=== PATIENT | female | born 1960 | race Caucasian/White ===

== ENCOUNTER → 2018-02-20 08:25 | Outpatient (CLI) | payer BC, SELFPAY ==
--- NOTE | 2018-02-20 08:32 | BD_ITS ---
STUDY: DUAL ENERGY X-RAY ABSORPTIOMETRY / DXA REASON FOR EXAM: Female, 57 years old. Postmenopausal screening TECHNIQUE: Bone Mineral Density (BMD) measurements of lumbar spine and bilateral hips was obtained. COMPARISON: None. FINDINGS: Lumbar Spine (L1-L4): g/cm2 (1.105) / T-score (-0.6) / Z-score (0.3) Findings are suggestive of normal bone density with a low fracture risk. Left Femur Total: g/cm2 (0.940) / T-score (-0.5) / Z-score (0.2) Left Femoral Neck: g/cm2 (0.926) / T-score (-0.8) / Z-score (0.3) Right Femur Total: g/cm2 (0.884) / T-score (-1.0) / Z-score (-0.2) Right Femoral Neck: g/cm2 (0.901) / T-score (-1.0) / Z-score (-0.2) BD/Dexa Bone Density Study IMPRESSION: The patient is considered osteopenic as outlined below according to World Jamari Organization (WHO) criteria with a moderate fracture risk. Reference Information: The T-score is the number of standard deviations above or below the standard which is normal for young adults at their peak bone mineral density. The World Health Organization (WHO) interprets the T-scores as follows: Above -1 Normal bone density Between -1 and -2.5 Osteopenia Equal to / or below -2.5 Osteoporosis As a practical clinical guideline, osteopenia may be graded as follows: Mild -1 through -1.5 Moderate -1.6 through -2.0 Severe -2.1 through -2.4 The Z-score is the number of standard deviations above or below age-matched controls. A Z-score of less than -1.5 would be considered abnormal. References: 1. NIH Osteoporosis and Related Bone Diseases http://www.osteo.org 2. International Society for Clinical Densitometry http://www.iscd.org 3. National Osteoporosis Foundation http://www.nof.org Electronically Signed: Erick Ralph MD at 8:06 EDT , Service support ,
== END ==
PROVIDERS: Family Provider Internal Medicine; PCP Internal Medicine; Visit Provider Internal Medicine
DX: Z78.0 Asymptomatic menopausal state (principal); M85.80 Other specified disorders of bone density and structure, unspecified site
CPT/HCPCS: 77080

== ENCOUNTER → 2018-05-15 15:30 | Outpatient (CLI) | payer BC, SELFPAY ==
--- NOTE | 2018-05-15 15:32 | BI_ITS ---
MAMMOGRAPHY - BILATERAL SCREENING REASON FOR EXAM: Female, 57 years old. Routine annual screening examination. PERTINENT HISTORY: Grandmother with breast cancer. TECHNIQUE: Digital bilateral breast fredrick (3D mammographic acquisition) in the CC and MLO projections. 2-D mediolateral oblique (MLO) and craniocaudad (CC) views of both breasts were obtained. CAD: Full Field Digital Mammography with Computer Added Detection was performed. COMPARISON: Comparison is made with prior examination dated April 03, 2017. FINDINGS: Breast Composition: The breasts are heterogeneously dense, which may obscure small masses. There are no dominant masses or suspicious calcifications. No other significant abnormalities are identified. There has been no significant change since the prior study. BI/SCREENING MAMM (CAD), BILAT IMPRESSION: Stable bilateral screening mammogram. Yearly follow-up mammogram recommended. (A) ASSESSMENT CATEGORY: BIRADS Category 1: Negative. A letter regarding these results will be sent to the patient by the facility within 30 days. Approximately 10% of breast cancers are not detected by mammography. A normal mammogram should not delay biopsy of a clinically suspicious abnormality. [id number] Electronically Signed: Brandon Vazquez MD at 9:25 EDT Tel [phone], Service support ,
== END ==
PROVIDERS: Family Provider Internal Medicine; PCP Internal Medicine; Visit Provider Obstetrics & Gynecology
DX: Z12.31 Encounter for screening mammogram for malignant neoplasm of breast (principal)
CPT/HCPCS: 77063; 77067

== ENCOUNTER → 2018-07-03 13:30 | Outpatient (CLI) | payer BC, SELFPAY ==
[2018-07-11 11:49] LABS: HPV APTIMA, High Risk Negative (Negative)
== END ==
PROVIDERS: Family Provider Internal Medicine; PCP Internal Medicine; Visit Provider Obstetrics & Gynecology
DX: Z12.4 Encounter for screening for malignant neoplasm of cervix (principal)
CPT/HCPCS: 88175; G0145

== ENCOUNTER → 2019-05-06 12:57 | Outpatient (CLI) | payer BC, SELFPAY ==
[2018-07-03 13:29] VITALS: BMI 23.3
--- NOTE | 2019-05-06 13:05 | BI_ITS ---
MAMMOGRAPHY - BILATERAL SCREENING REASON FOR EXAM: Female, 58 years old. Routine annual screening examination. PERTINENT HISTORY: Grandmother with breast cancer. TECHNIQUE: Digital bilateral breast rola (3D mammographic acquisition) in the CC and MLO projections. 2-D mediolateral oblique (MLO) and craniocaudad (CC) views of both breasts were obtained. CAD: Full Field Digital Mammography with Computer Added Detection was performed. COMPARISON: Comparison is made with prior study dated May 15, 2018. FINDINGS: Breast Composition: The breasts are heterogeneously dense, which may obscure small masses. There are no dominant masses or suspicious calcifications. No other significant abnormalities are identified. There has been no significant change since the prior study. BI/SCREEN MAMM (CAD) W/ROLA BILAT IMPRESSION: Stable bilateral screening mammogram. Yearly follow-up mammogram recommended. (A) ASSESSMENT CATEGORY: BIRADS Category 1: Negative. A letter regarding these results will be sent to the patient by the facility within 30 days. Approximately 10% of breast cancers are not detected by mammography. A normal mammogram should not delay biopsy of a clinically suspicious abnormality. [id number] Electronically Signed: Brandon Vazquez, at 15:41 EDT , Service support ,
== END ==
PROVIDERS: Family Provider Internal Medicine; PCP Internal Medicine; Referring Provider Internal Medicine; Visit Provider Internal Medicine
DX: Z12.31 Encounter for screening mammogram for malignant neoplasm of breast (principal)
CPT/HCPCS: 77063; 77067

== ENCOUNTER → 2019-09-24 08:26 | Outpatient (CLI) | payer BC, SELFPAY ==
[2019-09-16 11:29] VITALS: BMI 23.3
--- NOTE | 2019-09-24 08:31 | US_ITS ---
STUDY: ULTRASOUND TRANSVAGINAL CLINICAL: Female, 58 years old. TECHNIQUE: Transvaginal) and transabdominal COMPARISON: None. FINDINGS: Normal uterine size measuring 6.8 x 4.4 x 2.6 cm cm in maximal craniocaudal dimension. There are no myometrial masses. Normal endometrial thickness measuring 4 mm. There are no endometrial masses, and there is no fluid in the endometrial cavity. Normal uterine cervix. Normal right ovary, measuring 1.6 1.9 x 2.6 x 1.3 cm. There are multiple follicles without a dominant cyst. Normal left ovary, measuring 2.1 x 2.1 x 1 cm. There are multiple follicles without a dominant cyst. There is no free fluid in the pelvis. No cystic changes noted in either ovary. No free fluid in the pouch of Roland. US/Transvaginal Non- IMPRESSION: Negative study Electronically Signed: Dahlia Elkinsbrandie, at 8:37 EST Tel , Service support ,
--- NOTE | 2019-09-24 08:31 | US_ITS ---
STUDY: ULTRASOUND TRANSVAGINAL CLINICAL: Female, 58 years old. TECHNIQUE: Transvaginal) and transabdominal COMPARISON: None. FINDINGS: Normal uterine size measuring 6.8 x 4.4 x 2.6 cm cm in maximal craniocaudal dimension. There are no myometrial masses. Normal endometrial thickness measuring 4 mm. There are no endometrial masses, and there is no fluid in the endometrial cavity. Normal uterine cervix. Normal right ovary, measuring 1.6 1.9 x 2.6 x 1.3 cm. There are multiple follicles without a dominant cyst. Normal left ovary, measuring 2.1 x 2.1 x 1 cm. There are multiple follicles without a dominant cyst. There is no free fluid in the pelvis. No cystic changes noted in either ovary. No free fluid in the pouch of Roland. US/Pelvic (Non ) IMPRESSION: Negative study Electronically Signed: Dahlia Abel, at 8:37 EST Tel , Service support ,
== END ==
PROVIDERS: Family Provider Internal Medicine; PCP Internal Medicine; Referring Provider Obstetrics & Gynecology; Visit Provider Obstetrics & Gynecology
DX: N94.9 Unspecified condition associated with female genital organs and menstrual cycle (principal)
CPT/HCPCS: 76830; 76856; 93976

== ENCOUNTER 2019-10-13 10:03 | Emergency (ER) | payer BC, SELFPAY ==
[2019-09-16 11:29] VITALS: BMI 23.3
[2019-10-13 10:04] VITALS: BP 122/60; PULSE 78; RESP 18; TEMP 36.7; O2SAT 99; BMI 23.2
[2019-10-13 10:16] VITALS: BP 122/60; PULSE 78; RESP 18; TEMP 36.7; O2SAT 99
--- NOTE | 2019-10-13 10:17 | EKG12_ITS ---
Test Reason : COMPLAINT Blood Pressure : / mmHG Vent. Rate : 069 BPM Atrial Rate : 069 BPM P-R Int : 162 ms QRS Dur : 080 ms QT Int : 376 ms P-R-T Axes : 055 064 062 degrees QTc Int : 402 ms Normal sinus rhythm Normal ECG Confirmed by MING CHAVIRA, BENI ([id number]), video news editor EDUARDO GARCIA ([id number]) on 10/14/2019 11:30:29 AM Referred By: AMADA Confirmed By:BENI LAI MD
[2019-10-13 10:52] LABS: Absolute Lymphocyte Count 0.72 X10^3/uL (0.83-4.51); Absolute Neutrophil Count 10.1 X10^3/uL (2.0-7.7); Basophil# 0.03 X10^3/uL; Basophil% 0.3 % (0-1); Eosinophil# 0.06 X10^3/uL; Eosinophils% 0.5 % (0-5); Hematocrit 41.8 % (37-47); Hemoglobin 13.7 g/dL (12.0-15.0); Lymphocyte # 0.72 X10^3/ul (4.0); Lymphocyte % 6.2 % (19-41); Mean Corp Hgb Conc 32.8 g/dL (32-36); Mean Corpuscular Volume 94.6 fL (81-99); Mean Platelet Vol. 9.4 fl (6.2-12.0); Monocyte# 0.67 X10^3/uL; Monocyte% 5.8 % (0-10); NRBC Flagged by Analyzer 0 % (0-5); Neutrophil # 10.05 X10^3/uL (2.7-7.7); Neutrophil % 86.9 % (47-70); Platelet Count 211 K/mm3 (150-450); RBC Distribution Width CV 11.6 % (11.6-14.6); RBC Distribution Width SD 40.2 fl (35.1-43.9); Red Blood Count 4.42 M/mm3 (4.2-5.4); White Blood Count 11.6 K/mm3 (4.4-11.0)
--- NOTE | 2019-10-13 10:54 | ED.VIS.GEN ---
History of Present Illness Chief Complaint: Complaint Informant: Patient Onset: Today Maximum Severity: Mild Narrative: Patient complains of urinary frequency dysuria for about 24 to 48 hours, she was seen in urgent care center diagnosed with UTI, while she was there she felt suddenly tired and weak slightly dizzy and she was sent to the emergency department she is the symptoms are totally resolved she is had no fever no cough no chest pain no numbness weakness paresthesias, her last UTI was possibly 9 months ago she was treated with Cipro, she is been doing well at home and she assures me she feels fine now back to baseline she has no history of AK PE DVT seizure stroke Past Medical History - Allergies and Home Meds Allergies/Adverse Reactions: Allergies No Known Allergies Allergy (Verified 10/13/19 10:04) Primary Care Physician: Maria C Rodríguez DO [Primary Care Provider] - Past Medical History: - Smoking Status: Never smoker Review of Systems ROS: - Includes as above General: Reports: - - Only issue is the dysuria and frequency the transient dizziness is resolved completely. Denies: Chills, Fever, Sweats Eyes: Denies: Visual changes - bilaterally, Diplopia ENT: Denies: Rhinorrhea, Sore throat Cardiovascular: Denies: Chest pain, Palpitations Respiratory: Denies: Dyspnea, Cough, Dyspnea on exertion Gastrointestinal: Denies: Abdominal pain, Nausea, Vomiting, Diarrhea, Melena, Hematochezia Genitourinary: Denies: Dysuria, Hematuria, Frequency Musculoskeletal: Denies: Back pain, Extremity Pain Skin: Denies: Rash, Wounds Neurological: Denies: Headache, Weakness, Numbness Physical Exam Vital Signs/Narrative: Vital Signs Temp Pulse Resp BP Pulse Ox 10/13/19 10:16 98.1 F 78 18 122/60 H 99 10/13/19 10:04 98.1 F 78 18 122/60 H 99 General: Well nourished, Well developed, No Acute Distress Head: Normocephalic, Atraumatic Eyes: Perrl, EOMI ENT: Moist mucous membranes, No rhinorrhea Neck: Supple, Nontender Cardiovascular: Regular rate, Regular rhythm, No murmurs Respiratory: No distress, CTA bilaterally, Chest nontender Abdomen: Soft, Nontender, Nondistended, Normal bowel sounds Back: Nontender, Normal Inspection Extremities: Nontender, No edema Skin: Normal color, No rash Neurological: Alert, Oriented x3, Cranial nerves II-XII grossly intact, Normal Strength, Normal Sensation Psychological: Normal affect, Normal Mood Diagnostic/Tx/Re-eval - Medical Decision Making Patient's in no distress her vital signs are normal her neurologic exam is entirely negative cranial nerves motor or sensory cerebellar negative NIH 0 she had no cardiovascular symptoms just the dysuria this time screening labs are obtained EKG shows a sinus rhythm rate 70 no acute injury pattern noted The patient's screening labs are generally unremarkable except her UA shows signs of UTI, urine culture sent her white count 11.6 she is in no distress she feels at baseline she is comfortable discharge home does not feel as if admission is warranted, she will be started on oral Cipro which is helped in the past and she will follow-up with her outpatient providers Home stable Final impression urinary tract infection ED Disposition - Plan for ED Patient: Diagnosis: UTI (urinary tract infection) Instructions: Bladder Infection, Female (Adult) Prescriptions: Ciprofloxacin [Cipro] 500 mg PO BID #10 tab Prescription Printed Phenazopyridine HCl [Pyridium] 200 mg PO BID PRN PRN #10 tab PRN Reason: Pain Prescription Printed Referrals: Maria C Rodríguez DO [Primary Care Provider] -
[2019-10-13 11:04] LABS: Anion Gap 4 (5-15); BUN 10 mg/dL (7-18); BUN/Creat Ratio 12.7 RATIO (10-20); Calcium,Total 8.6 mg/dL (8.5-10.1); Chloride 102 mmol/L (98-107); Creatinine, Serum 0.79 mg/dL (0.55-1.02); EST Glomerular Filtration Rate 79 mL/min (>60); Est Glom Filt Rate - Afr Amer 96 mL/min (>60); Estimated Creatinine Clearance 64.21 ml/min; Glucose 121 mg/dL (74-106); Potassium 3.5 mmol/L (3.5-5.1); Sodium Level 136 mmol/L (136-145)
[2019-10-13 11:07] VITALS: BP 103/57; PULSE 74; RESP 16; TEMP 36.9; O2SAT 100
[2019-10-13] MEDS: 0.9% Normal Saline 1,000 ML 125 ML IV (11:35)
[2019-10-13 11:44] LABS: Bacteria 0 SEEN /hpf (None Seen); Mucous, Urine 0 SEEN /hpf (<or=2+); Squamous Epithelial Cells - UA 0 SEEN /hpf (5-10)
[2019-10-13 11:45] LABS: Color, Urine Yellow (Yellow); Glucose, Dipstick Normal (Normal); Ketone-Dipstick 5 mg/dl (Negative); Leukocyte Esterase-Dipstick 500 /ul (Negative); Nitrite-Dipstick Positive (Negative); Occult Blood-Urine 250 /ul (Negative); Protein-Dipstick 100 mg/dl (Negative); Specific Gravity, Urine 1.015 (1.002-1.030); Urine Bilirubin Dipstick Negative (Negative); Urine Clarity Cloudy (Clear); Urine Urobilinogen 1 mg/dl (Normal)
[2019-10-13 11:52] LABS: Red Blood Cells-Urine > 100 SEEN /hpf (0-5)
[2019-10-13 11:53] LABS: White Blood Cells 50-100 SEEN /hpf (0-5)
[2019-10-13 12:00] VITALS: TEMP 37
[2019-10-13 12:03] VITALS: BP 103/48; PULSE 80; RESP 18; O2SAT 99
[2019-10-13] MEDS: Ciprofloxacin 250 MG Tablet 500 MG PO (12:35)
== END 2019-10-13 13:02 | disposition home or self-care (01) ==
PROVIDERS: Emergency Provider Emergency Medicine; Family Provider Internal Medicine; PCP Internal Medicine
DX: N39.0 Urinary tract infection, site not specified (principal)
CPT/HCPCS: 80048; 81001; 84484; 85025; 87086; 87088; 93005; 96360; 99284; J7030; J7040; A4216

== ENCOUNTER → 2019-12-18 | Outpatient (CLI) | payer BC, SELFPAY ==
[2019-12-18 10:59] VITALS: BMI 23.2
--- NOTE | 2019-12-18 11:15 | EMB_PTH ---
PATIENT: MACARENA WEEKS LOC: [facility] U#:[id number] AGE/SX: 59/F ROOM: RE12/18/[address]: JULI Cabrera : 1960 BED: DIS: 12/18/2019 SPEC #: [id number] RECD: 12/18/19 13:48 STATUS: GRETCHEN RELulu #: [id number] DANIEL: 12/18/19 11:[address]: Tierra Dixon NP DEPT: SURGICAL PATHOLOGY RECD BY: Elma Pink ENTERED: 12/18/19 14:07 SP TYPE: ENDOM BX/C CHARITY DR: Dr. Maria C Rodríguez DO Tissues: Endometrium, NOS Procedures: Surgery Specimen Level IV HEADER OPERATION: Endometrial biopsy PRE-OP DIAGNOSIS: Abnormal uterine bleeding TISSUE SUBMITTED: Endometrial lining MICROSCOPIC DIAGNOSIS Endometrial biopsy: Strips of benign endometrial epithelium and scant superficial fragments of inactive endometrial tissue. See comment. SJ:ena 12/19/19 COMMENT The findings may represent atrophic endometrium. MICROSCOPIC DESCRIPTION Slides are reviewed. GROSS DESCRIPTION Received is one container labeled with the patient's name and not further designated. The specimen consists of a scant fragments of mackey mucosal tissue measuring 1.5 x 0.1 x <0.1 cm. The specimen is totally submitted for cell block preparation. / SJ:ena 12/18/19 TC:4 CPT: 37235
== END | disposition home or self-care (01) ==
PROVIDERS: PCP Internal Medicine; Referring Provider Nurse Practitioner Women's Health; Visit Provider Nurse Practitioner Women's Health
DX: N93.9 Abnormal uterine and vaginal bleeding, unspecified (principal)
CPT/HCPCS: 88305

== ENCOUNTER → 2020-08-27 11:23 | Outpatient (CLI) | payer BC, SELFPAY ==
[2020-08-20 14:52] VITALS: BMI 23.9
--- NOTE | 2020-08-27 11:26 | US_ITS ---
STUDY: ULTRASOUND OF THE FEMALE PELVIS - COMPLETE REASON FOR EXAM: Female, 59 years old. POST MENOPAUSAL BLEEDING TECHNIQUE: Endovaginal TECHNICAL QUALITY: Adequate. COMPARISON: None. FINDINGS: The uterus is anteverted and is in a midline position. The uterus measures 5.0 x 4.3 x 2.4 cm. Questionable 1 x 1.2 cm nodule at the uterine cervix. The endometrium measures 1.5 mm in thickness, and is hyperechoic. There is no demonstrated endometrial mass. There is no demonstrated myometrial mass. The patient does not have an I.U.D. The right ovary is not visualized. The left ovary is visualized. The left ovary measures 1.8 x 1.6 x 0.8 cm. There is no left ovarian cyst or ovarian mass. There is no visualized left adnexal mass or complex lesion. There is normal arterial and normal venous vascularity. There is no fluid in the cul-de-sac. US/Transvaginal Non- IMPRESSION: Questionable soft tissue nodule at the cervix requiring further evaluation. Electronically Signed: Hua Zapata DO at 23:57 EDT Tel [phone], Service support ,
--- NOTE | 2020-08-27 11:26 | US_ITS ---
STUDY: ULTRASOUND OF THE FEMALE PELVIS - COMPLETE REASON FOR EXAM: Female, 59 years old. POST MENOPAUSAL BLEEDING TECHNIQUE: Endovaginal TECHNICAL QUALITY: Adequate. COMPARISON: None. FINDINGS: The uterus is anteverted and is in a midline position. The uterus measures 5.0 x 4.3 x 2.4 cm. Questionable 1 x 1.2 cm nodule at the uterine cervix. The endometrium measures 1.5 mm in thickness, and is hyperechoic. There is no demonstrated endometrial mass. There is no demonstrated myometrial mass. The patient does not have an I.U.D. The right ovary is not visualized. The left ovary is visualized. The left ovary measures 1.8 x 1.6 x 0.8 cm. There is no left ovarian cyst or ovarian mass. There is no visualized left adnexal mass or complex lesion. There is normal arterial and normal venous vascularity. There is no fluid in the cul-de-sac. US/Pelvic (Non ) IMPRESSION: Questionable soft tissue nodule at the cervix requiring further evaluation. Electronically Signed: Hua Zapata DO at 23:57 EDT Tel [phone], Service support ,
== END ==
PROVIDERS: PCP Internal Medicine; Referring Provider Obstetrics & Gynecology; Visit Provider Obstetrics & Gynecology
DX: N95.0 Postmenopausal bleeding (principal)
CPT/HCPCS: 76830; 76856

== ENCOUNTER → 2020-10-01 12:29 | Outpatient (CLI) | payer BC, SELFPAY ==
[2019-09-16 11:29] VITALS: BMI 23.3
[2020-08-20 14:52] VITALS: BMI 23.9
--- NOTE | 2020-10-01 12:31 | BI_ITS ---
MAMMOGRAPHY - BILATERAL SCREENING REASON FOR EXAM: Female, 59 years old. Routine annual screening examination. PERTINENT HISTORY: Grandmothers with breast cancer. TECHNIQUE: Digital bilateral breast rola (3D mammographic acquisition) in the CC and MLO projections. 2-D mediolateral oblique (MLO) and craniocaudad (CC) views of both breasts were obtained. CAD: Full Field Digital Mammography with Computer Added Detection was performed. COMPARISON: Comparison is made with prior study dated 05/06/2019 and 05/15/2018. FINDINGS: Breast Composition: The breasts are heterogeneously dense, which may obscure small masses. There are no dominant masses or suspicious calcifications. No other significant abnormalities are identified. There has been no significant change since the prior study. BI/SCREEN MAMM (CAD) W/ROLA BILAT IMPRESSION: Stable bilateral screening mammogram. Yearly follow-up mammogram recommended. (A) ASSESSMENT CATEGORY: BIRADS Category 1: Negative. A letter regarding these results will be sent to the patient by the facility within 30 days. Approximately 10% of breast cancers are not detected by mammography. A normal mammogram should not delay biopsy of a clinically suspicious abnormality. [id number] Electronically Signed: Brandon Vazquez, at 13:40 EST , Service support ,
--- NOTE | 2020-10-01 12:32 | BD_ITS ---
STUDY: DUAL ENERGY X-RAY ABSORPTIOMETRY / DXA REASON FOR EXAM: Female, 59 years old. Age of pedro 53. Pat is 134.5# and 63 and quot; a loss of 1.5 and quot; per pat. Takes Calcium and a multi-vit. Exercises moderately. Has a fam hx of osteo. TECHNIQUE: Bone Mineral Density (BMD) measurements of lumbar spine and bilateral hips were obtained. COMPARISON: Comparison is made with prior study dated 02/20/2018. FINDINGS: Lumbar Spine (L1-L4): g/cm2 (1.129) / T-score (-0.4) / Z-score (0.7) Findings are suggestive of normal bone density with a low fracture risk. Left Femur Total: g/cm2 (0.951) / T-score (-0.5) / Z-score (0.5) Left Femoral Neck: g/cm2 (0.903) / T-score (-1.0) / Z-score (0.3) Right Femur Total: g/cm2 (0.877) / T-score (-1.0) / Z-score (-0.1) Right Femoral Neck: g/cm2 (0.843) / T-score (-1.4) / Z-score (-0.2) The T-Scores on the most recent prior examination were: Lumbar Spine (L1-L4): There has been improvement of bone density since the previous examination. Left Femur Total: which represents an improvement of 1.2%. Right Femur Total: which represents a worsening of 0.8%. BD/Dexa Bone Density Study IMPRESSION: The patient is considered osteopenic as outlined below according to World Jamari Organization (WHO) criteria with a low fracture risk. There has been improvement of bone density since the previous examination. Reference Information: The T-score is the number of standard deviations above or below the standard which is normal for young adults at their peak bone mineral density. The World Health Organization (WHO) interprets the T-scores as follows: Above -1 Normal bone density Between -1 and -2.5 Osteopenia Equal to / or below -2.5 Osteoporosis As a practical clinical guideline, osteopenia may be graded as follows: Mild -1 through -1.5 Moderate -1.6 through -2.0 Severe -2.1 through -2.4 The Z-score is the number of standard deviations above or below age-matched controls. A Z-score of less than -1.5 would be considered abnormal. References: 1. NIH Osteoporosis and Related Bone Diseases www osteo.org 2. International Society for Clinical Densitometry www iscd.org 3. National Osteoporosis Foundation www nof.org Electronically Signed: Brandon Vazquez, at 14:06 EST , Service support ,
[2020-10-06 16:17] LABS: HPV APTIMA, High Risk Negative (Negative)
== END ==
PROVIDERS: Family Provider Internal Medicine; PCP Internal Medicine; Referring Provider Obstetrics & Gynecology; Visit Provider Internal Medicine
DX: Z12.31 Encounter for screening mammogram for malignant neoplasm of breast (principal); Z78.0 Asymptomatic menopausal state; Z12.4 Encounter for screening for malignant neoplasm of cervix
CPT/HCPCS: 77063; 77067; 77080; 87624; 88175; G0145

== ENCOUNTER 2021-12-07 10:41 | Outpatient (CLI) | payer BC, SELFPAY ==
[2020-10-01 13:25] VITALS: BMI 23.7
--- NOTE | 2021-12-07 10:44 | BI_ITS ---
MAMMOGRAPHY - BILATERAL SCREENING REASON FOR EXAM: Female, 60 years old. Routine annual screening examination. PERTINENT HISTORY: Grandmothers with breast cancer. TECHNIQUE: Digital bilateral breast rola (3D mammographic acquisition) in the CC and MLO projections. 2-D mediolateral oblique (MLO) and craniocaudad (CC) views of both breasts were obtained. CAD: Full Field Digital Mammography with Computer Added Detection was performed. COMPARISON: Comparison is made with prior examination dated 10/01/2020 and 05/06/2019. FINDINGS: Breast Composition: The breasts are heterogeneously dense, which may obscure small masses. There are no dominant masses or suspicious calcifications. No other significant abnormalities are identified. There has been no significant change since the prior study. BI/SCRN MAMM (CAD)W/ROLA BILAT IMPRESSION: Stable bilateral screening mammogram. Yearly follow-up mammogram recommended. (A) ASSESSMENT CATEGORY: BIRADS Category 1: Negative. A letter regarding these results will be sent to the patient by the facility within 30 days. Approximately 10% of breast cancers are not detected by mammography. A normal mammogram should not delay biopsy of a clinically suspicious abnormality. [id number] Electronically Signed: Brandon Vazquez MD at 12:47 EST ,
== END 2021-12-07 23:59 | disposition home or self-care (01) ==
LOC: OPBI 10:42
PROVIDERS: PCP Internal Medicine; Referring Provider Obstetrics & Gynecology; Visit Provider Obstetrics & Gynecology
DX: Z12.31 Encounter for screening mammogram for malignant neoplasm of breast (principal); Z80.3 Family history of malignant neoplasm of breast
CPT/HCPCS: 77063; 77067

== ENCOUNTER 2021-12-24 18:21 | Outpatient (CLI) | payer BC, SELFPAY ==
[2021-12-24 18:23] LABS: Bacteria 0 SEEN /hpf (None Seen); Mucous, Urine 0 SEEN /hpf (<or=2+); Red Blood Cells-Urine 0 SEEN /hpf (0-5); Squamous Epithelial Cells - UA 0 SEEN /hpf (5-10)
[2021-12-24 18:35] LABS: Color, Urine Straw (Yellow); Glucose, Dipstick Normal (Normal); Ketone-Dipstick Negative (Negative); Leukocyte Esterase-Dipstick 500 /ul (Negative); Nitrite-Dipstick Negative (Negative); Occult Blood-Urine 250 /ul (Negative); Protein-Dipstick 100 mg/dl (Negative); Urine Bilirubin Dipstick Negative (Negative); Urine Clarity Cloudy (Clear); Urine Urobilinogen Normal (Normal)
[2021-12-24 19:33] LABS: White Blood Cells >100 SEEN /hpf (0-5)
== END 2021-12-24 23:59 | disposition home or self-care (01) ==
PROVIDERS: PCP Internal Medicine; Referring Provider Physician Assistant Surgical; Visit Provider Physician Assistant Surgical
DX: N39.0 Urinary tract infection, site not specified (principal)
CPT/HCPCS: 81001; 87086; 87088; 87186

== ENCOUNTER → 2022-12-08 | Outpatient (CLI) | payer BC, SELFPAY ==
--- NOTE | 2022-12-08 10:22 | BI_ITS ---
MAMMOGRAPHY - BILATERAL SCREENING REASON FOR EXAM: Female, 61 years old. Routine annual screening examination. PERTINENT HISTORY: Grandmothers with breast cancer. TECHNIQUE: Digital bilateral breast rola (3D mammographic acquisition) in the CC and MLO projections. 2-D mediolateral oblique (MLO) and craniocaudad (CC) views of both breasts were obtained. CAD: Full Field Digital Mammography with Computer Added Detection was performed. COMPARISON: Comparison is made with prior study dated 12/07/2021 and 10/01/2020. FINDINGS: Breast Composition: The breasts are extremely dense, which lowers the sensitivity of mammography. There are no dominant masses or suspicious calcifications. No other significant abnormalities are identified. There has been no significant change since the prior study. BI/SCRN MAMM (CAD)W/ROLA BILAT IMPRESSION: Stable bilateral screening mammogram. Yearly follow-up mammogram recommended. (A) ASSESSMENT CATEGORY: BIRADS Category 1: Negative. A letter regarding these results will be sent to the patient by the facility within 30 days. Approximately 10% of breast cancers are not detected by mammography. A normal mammogram should not delay biopsy of a clinically suspicious abnormality. [id number] Electronically Signed: Brandon Vazquez MD at 12:22 EST ,
== END | disposition home or self-care (01) ==
LOC: OPBI 10:20
PROVIDERS: PCP Internal Medicine; Visit Provider Nurse Practitioner Women's Health
DX: Z12.31 Encounter for screening mammogram for malignant neoplasm of breast (principal); Z80.3 Family history of malignant neoplasm of breast
CPT/HCPCS: 77063; 77067

== ENCOUNTER → 2022-12-30 | Outpatient (CLI) | payer BC, SELFPAY ==
--- NOTE | 2022-12-30 16:50 | CT_ITS ---
INDICATION: GROSS HEMATURIA EXAMINATION: CT ABDOMEN AND PELVIS WITH AND WITHOUT CONTRAST - CT Abdomen And Pelvis WO/W Contrast Injection TECHNIQUE: Helically acquired images were obtained of the abdomen and pelvis both before and after IV contrast. A radiation dose optimization technique was used for this scan. IV Contrast dosage and agent: Oral contrast: None. COMPARISON: None. FINDINGS: LOWER CHEST: Lung bases are clear. No cardiomegaly or pericardial effusion. LIVER: Homogeneous. There is a subcapsular cyst at the right lobe of the liver measures 6 mm. BILIARY TREE: No intra- or extrahepatic biliary ductal dilation. PANCREAS: No focal cystic or solid mass. SPLEEN: Normal size without focal cystic or solid mass. ADRENAL GLANDS: No nodules. KIDNEYS AND URETERS: Normal renal size and position. No hydronephrosis. There is a left renal cyst measures 1 cm. PERITONEUM: No ascites or free air. No other fluid collection. BOWEL: No evidence of acute appendicitis. No stomach or bowel distension. No focal inflammatory change. LYMPH NODES: No enlarged mesenteric or retroperitoneal lymph nodes. VESSELS: Aorta is non-dilated. URINARY BLADDER: Unremarkable. REPRODUCTIVE ORGANS: No pelvic masses. ABDOMINAL WALL: No discrete abdominal or pelvic wall hernia. 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 CT/CT Abd/Pelvis W/WO Contrast IMPRESSION: No evidence of kidney stones and renal neoplasm. Electronically Signed: Rosa Isela Washburn MD at 6:56 EST ,
[2022-12-30 17:40] LABS: CREATININE FINGERSTICK < 0.9 mg/dL (0.55-1.02); EGFR FINGERSTICK > 60.0000 mL/min (>60)
== END | disposition home or self-care (01) ==
LOC: CT 16:49
PROVIDERS: PCP Internal Medicine; Referring Provider Urology; Visit Provider Urology
DX: R31.0 Gross hematuria (principal)
CPT/HCPCS: 74178; Q9967

== ENCOUNTER → 2023-01-03 | Outpatient (CLI) | payer BC, SELFPAY ==
--- NOTE | 2023-01-03 | CYSPIN_PTH ---
PATIENT: MACARENA WEEKS LOC: [facility] U#:[id number] AGE/SX: 62/F ROOM: RE01/03/[address]: Dr. Destiny Alexis MD : 1960 BED: DIS: 01/03/2023 SPEC #: [id number] RECD: 01/03/23 15:00 STATUS: GRETCHEN MCFADDEN #: [id number] DANIEL: 01/03/23 00:[address]: Destiny Alexis DEPT: CYTOLOGY RECD BY: Elma Pink ENTERED: 01/04/23 07:56 SP TYPE: CYSPIN FL OTHR DR: Dr. Maria C Rodríguez, Tissues: Urine Procedures: Pap Stain (control) Special Stain Group II Cytospin Fluid HEADER OPERATION: Not noted PRE-OP DIAGNOSIS: Gross hematuria TISSUE SUBMITTED: Urine for cytology DIAGNOSIS CYTOLOGY Urine for cytology (cytospin): Negative for high-grade urothelial carcinoma (NHGUC), Jen System Category II. See comment. AM:ena 01/04/2023 COMMENT The Jen System for urine cytology diagnostic categorization was used in the evaluation of this case. CYTOLOGY STUDY Slides are reviewed. CYTOLOGY GROSS Received is 20 ml of hazy colorless fluid labeled with the patient's name and and designated per the requisition as urine. Submitted for cytology preparation. / ena 01/03/2023 TC:5 CPT: 88677
[2023-01-03 17:36] LABS: Cytology, Body Fluid / CSF SEE PATHOLOGY REPORT
== END | disposition home or self-care (01) ==
PROVIDERS: PCP Internal Medicine; Visit Provider Urology
DX: R31.0 Gross hematuria (principal)
CPT/HCPCS: 88108; 88313

== ENCOUNTER → 2023-03-28 | Outpatient (CLI) | payer BC, SELFPAY ==
--- NOTE | 2023-03-28 10:35 | BD_ITS ---
STUDY: DUAL ENERGY X-RAY ABSORPTIOMETRY / DXA REASON FOR EXAM: Female, 62 years old. 733.90OsteopeniaBONE DENSITY REASON FOR EXAM TECHNIQUE: Bone Mineral Density (BMD) measurements of lumbar spine and bilateral hips were obtained. COMPARISON: Comparison is made with prior study dated October 01, 2020. FINDINGS: Lumbar Spine (L1-L4): g/cm2 (0.957) / T-score (-0.8) / Z-score (0.8) Findings are suggestive of normal bone density with a low fracture risk. Left Femur Total: g/cm2 (0.860) / T-score (-0.7) / Z-score (0.4) Left Femoral Neck: g/cm2 (0.767) / T-score (-0.7) / Z-score (0.6) Right Femur Total: g/cm2 (0.808) / T-score (-1.1) / Z-score (0.0) Right Femoral Neck: g/cm2 (0.729) / T-score (-1.1) / Z-score (0.3) The T-Scores on the most recent prior examination were: Lumbar Spine (L1-L4): There has been worsening of bone density since the previous examination. Left Femur Total: which represents a worsening of 3%. Right Femur Total: which represents a worsening of 0.8%. BD/Dexa Bone Density Study IMPRESSION: The patient is considered osteopenic as outlined below according to World Jamari Organization (WHO) criteria with a low fracture risk. There has been worsening of bone density since the previous examination. Reference Information: The T-score is the number of standard deviations above or below the standard which is normal for young adults at their peak bone mineral density. The World Health Organization (WHO) interprets the T-scores as follows: Above -1 Normal bone density Between -1 and -2.5 Osteopenia Equal to / or below -2.5 Osteoporosis As a practical clinical guideline, osteopenia may be graded as follows: Mild -1 through -1.5 Moderate -1.6 through -2.0 Severe -2.1 through -2.4 The Z-score is the number of standard deviations above or below age-matched controls. A Z-score of less than -1.5 would be considered abnormal. References: 1. NIH Osteoporosis and Related Bone Diseases www osteo.org 2. International Society for Clinical Densitometry www iscd.org 3. National Osteoporosis Foundation www nof.org Electronically Signed: Brandon Vazquez MD at 14:38 EDT ,
== END | disposition home or self-care (01) ==
PROVIDERS: PCP Internal Medicine; Referring Provider Internal Medicine; Visit Provider Internal Medicine
DX: M85.80 Other specified disorders of bone density and structure, unspecified site (principal)
CPT/HCPCS: 77080

== ENCOUNTER → 2023-12-12 | Outpatient (CLI) | payer OTHER, SELFPAY ==
--- NOTE | 2023-12-12 10:50 | BI_ITS ---
MAMMOGRAPHY - BILATERAL SCREENING REASON FOR EXAM: Female, 63 years old. Routine annual screening examination. PERTINENT HISTORY: Grandmothers with breast cancer. TECHNIQUE: Digital bilateral breast rola (3D mammographic acquisition) in the CC and MLO projections. 2-D mediolateral oblique (MLO) and craniocaudad (CC) views of both breasts were obtained. CAD: Full Field Digital Mammography with Computer Added Detection was performed. COMPARISON: Comparison is made with prior study dated December 08, 2022 and December 07, 2021. FINDINGS: Breast Composition: The breasts are extremely dense, which lowers the sensitivity of mammography. There are no dominant masses or suspicious calcifications. No other significant abnormalities are identified. There has been no significant change since the prior study. BI/SCRN MAMM (CAD)W/ROLA BILAT IMPRESSION: Stable bilateral screening mammogram. Yearly follow-up mammogram recommended. (A) ASSESSMENT CATEGORY: BIRADS Category 1: Negative. A letter regarding these results will be sent to the patient by the facility within 30 days. Approximately 10% of breast cancers are not detected by mammography. A normal mammogram should not delay biopsy of a clinically suspicious abnormality. [id number] Electronically Signed: Brandon Vazquez MD at 11:29 EST ,
== END | disposition home or self-care (01) ==
LOC: OPBI 10:50
PROVIDERS: PCP Internal Medicine; Referring Provider Nurse Practitioner Women's Health; Visit Provider Nurse Practitioner Women's Health
DX: Z12.31 Encounter for screening mammogram for malignant neoplasm of breast (principal)
CPT/HCPCS: 77063; 77067

== ENCOUNTER → 2024-03-08 | Outpatient (CLI) | payer OTHER, SELFPAY ==
--- NOTE | 2024-03-08 11:25 | STRESSREP_ITS ---
Stress Test Report Date: 03/08/2024 Procedure: Exercise tolerance test/imaging study Indications: Abnormal cardiac screening Consent: Per the patient Procedure: The patient exercised on a Armando protocol for 7 minutes and 1 second achieving a peak heart rate of 142 bpm (90% predicted maximal heart rate) with a peak blood pressure 148/72 mmHg and a peak MET capacity of 10.1 METs. The baseline ECG demonstrated sinus rhythm. The peak exercise ECG demonstrated no ischemic changes. Rare PVC noted. The functional capacity was considered average. There was no complaint of chest discomfort during exercise or recovery. The examination was discontinued secondary to target heart rate being achieved. The patient was injected with 12.0 mCi of technetium 99m Cardiolite and subsequently rest SPECT Cardiolite nuclear imaging was obtained in the horizontal long, vertical long, and short axis views. Post-exercise, the patient was injected with 36.0 mCi of technetium 99m Cardiolite and subsequently stress SPECT Cardiolite nuclear imaging was obtained in the horizontal long, vertical long, and short axis views. A gated Cardiolite study at peak stress was obtained. Rest and stress SPECT Cardiolite nuclear imaging status post realignment, normalization, and attenuation correction, demonstrates the appearance of relative uniform tracer uptake and myocardial perfusion appearing within normal limits. There is end systolic thickening and brightening. The gated Cardiolite study demonstrates myocardial thickening and inward wall motion. The reported LVEF is 77%. Impression: 1. Technically adequate (percent predicted maximal heart rate greater than 85%) exercise tolerance test 2. Peak exercise ECG with no ischemic changes 3. Rare PVC noted 4. Rest and stress SPECT Cardiolite nuclear imaging demonstrate relative uniform tracer uptake and myocardial perfusion appearing within normal limits. 5. The gated Cardiolite study reports an LVEF of 77%. This note was generated with Epuramatation software. It may contain incorrect words, spelling, and punctuation that were not noted in checking the note before signing.
== END | disposition home or self-care (01) ==
LOC: CVS 06:21
PROVIDERS: PCP Internal Medicine; Referring Provider Internal Medicine; Visit Provider Internal Medicine
DX: R93.1 Abnormal findings on diagnostic imaging of heart and coronary circulation (principal)
CPT/HCPCS: 78452; 93017; A9500

== ENCOUNTER → 2024-12-17 | Outpatient (CLI) | payer OTHER, SELFPAY ==
--- NOTE | 2024-12-17 10:26 | BI_ITS ---
PROCEDURE: SCRN MAMM (CAD)W/ROLA BILAT REASON FOR EXAM: F, Age 64 y/o, grandmothers with breast cancer. Annual mammographic follow-up. TECHNIQUE: Bilateral screening digital breast tomosynthesis with 2D and 3D images. Computer aided detection. COMPARISON: Prior exam(s) dating back to December 12, 2023.. FINDINGS: The breasts are extremely dense which lowers the sensitivity of mammography. Stable examination. No suspicious masses, areas of developing architectural distortion, or suspicious calcifications. BI/SCRN MAMM (CAD)W/ROLA BILAT IMPRESSION: BI-RADS 1: NEGATIVE. RECOMMEND ANNUAL MAMMOGRAPHIC SCREENING. Follow-up code: Routine Follow-up The patient will be notified of the results by letter. Reading Location: [place] [id number]
== END | disposition home or self-care (01) ==
LOC: OPBI 10:26
PROVIDERS: PCP Internal Medicine; Referring Provider Nurse Practitioner Women's Health; Visit Provider Nurse Practitioner Women's Health
DX: Z12.31 Encounter for screening mammogram for malignant neoplasm of breast (principal)
CPT/HCPCS: 77063; 77067

== ENCOUNTER → 2024-12-24 | Outpatient (CLI) | payer OTHER, SELFPAY ==
[2024-12-28 09:08] LABS: HPV APTIMA, High Risk Negative (Negative)
== END | disposition home or self-care (01) ==
LOC: BWCLAB 15:08
PROVIDERS: PCP Internal Medicine; Visit Provider Nurse Practitioner Women's Health
DX: Z12.4 Encounter for screening for malignant neoplasm of cervix (principal)
CPT/HCPCS: 87624; 88175; G0145

== ENCOUNTER → 2025-03-21 | Outpatient (CLI) | payer OTHER, SELFPAY ==
--- NOTE | 2025-03-21 11:05 | RAD_ITS ---
EXAM: XR Left Shoulder Complete, 2 or More Views CLINICAL INDICATION: PAIN TECHNIQUE: Two or more views of the left shoulder. COMPARISON: No relevant prior studies available. FINDINGS: BONES/JOINTS: Unremarkable. No acute fracture. No dislocation. SOFT TISSUES: Unremarkable. RAD/Shoulder min 2 Views IMPRESSION: No acute fracture. Reading [facility]
--- NOTE | 2025-03-21 11:05 | RAD_ITS ---
EXAM: XR Cervical Spine Flexion/Extension Only, 2 or 3 Views CLINICAL INDICATION: NECK PAIN, CERVICAL RADICULOPATHY TECHNIQUE: Lateral flexion/extension views of the cervical spine. COMPARISON: No relevant prior studies available. FINDINGS: VERTEBRAE: Straightening of the cervical spine alignment could be secondary to muscular spasm or projection. Mild endplate degenerative change and disc disease of C5-C7. No acute fracture. No instability. DISC SPACES: No acute findings. No significant narrowing. SOFT TISSUES: Unremarkable. RAD/Cerv Spine 2 or 3 Views IMPRESSION: 1. Degenerative changes as above. 2. If symptoms persist, further evaluation with MRI is recommended. Reading Location[facility]
== END | disposition home or self-care (01) ==
LOC: MTRAD 11:03
PROVIDERS: PCP Internal Medicine; Referring Provider Internal Medicine; Visit Provider Internal Medicine
DX: M54.12 Radiculopathy, cervical region (principal); M25.512 Pain in left shoulder
CPT/HCPCS: 72040; 73030

== ENCOUNTER → 2025-04-30 | Outpatient (CLI) | payer OTHER, SELFPAY ==
--- NOTE | 2025-04-30 10:49 | NEURO ---
NCS and/or EMG Patient Report Ordering Doctor: Maria C Rodríguez DATE OF SERVICE: 04/30/25 Leola presents with complaints of intermittent tingling in the left arm. Electrodiagnostic findings: Left median motor nerve demonstrates normal distal latency, amplitude and conduction velocity. Normal left ulnar motor response, including conduction across the elbow. Sensory responses are within normal limits. Normal left median and left ulnar F?wave. Needle EMG testing was performed in the left upper limb. All muscles tested showed no evidence of denervation with normal motor unit action potentials Electrodiagnostic impression: This is a normal electrodiagnostic study of the left upper limb. There is no electrodiagnostic evidence for peripheral neuropathy, including carpal tunnel or cubital tunnel syndrome. There is no electrodiagnostic evidence for cervical radiculopathy or brachial plexopathy. Multi Select Codes Neurology Neurology Interp Codes: 94163-23 Musc test done w/n test comp (interp) and 05588-10 Nrv cndj test 7-8 studies (interp)
== END | disposition home or self-care (01) ==
LOC: PSN 09:52
PROVIDERS: PCP Internal Medicine; Referring Provider Internal Medicine; Visit Provider Internal Medicine
DX: M75.92 Shoulder lesion, unspecified, left shoulder (principal); M62.81 Muscle weakness (generalized)
CPT/HCPCS: 95886; 95910

== ENCOUNTER → 2025-08-19 | Outpatient (CLI) | payer OTHER, SELFPAY ==
--- NOTE | 2025-08-19 10:07 | BD_ITS ---
PROCEDURE: DEXA BONE DENSITY STUDY 08/19/2025 REASON FOR EXAM: F, age 64 y/o . Postmenopausal. TECHNIQUE: Procedure Code: BDDBD Modality: DX Procedure: DEXA BONE DENSITY STUDY COMPARISON: March 28, 2023. FINDINGS: BMD and T-SCORES Lumbar spine: 0.904 g/cm2, T-score -1.4 Levels: L1 through L4 Change from prior: Loss of 3.6%. Left femoral neck: 0.666 g/cm2, T-score -1.6 Femoral neck comparison data not recommended for monitoring change. Left total hip: 0.826 g/cm2, T-score -1.0 Change from prior: Loss of 4%. Right femoral neck: 0.701 g/cm2, T-score -1.3 Femoral neck comparison data not recommended for monitoring change. Right total hip: 0.814 g/cm2, T-score -1.1 Change from prior: Improvement of 0.7%. The World Health Organization has defined the following categories based on bone density: Normal bone density: T-score equal to or greater than -1.0 Osteopenia: T-score between -1.0 and -2.5 Osteoporosis: T-score equal to or less than -2.5 FRAX (or Comparable) Fracture Risk Assessment: 10 Year Probability of Fracture: Major Osteoporotic Fracture: 8.9% Hip Fracture: 1% (Note: FRAX is not to be reported in setting of normal range bone density, osteoporosis on DEXA, known history of osteoporosis, prior osteoporotic hip or vertebral fracture, or for any patient undergoing pharmacological treatment for bone loss.) The National Osteoporosis Foundation (NOF) recommends pharmacological treatment for patients with a FRAX 10-year risk of 3% or higher for a hip fracture, or 20% or higher for a major osteoporotic fracture, to prevent osteoporosis and reduce fracture risk. The patient does meet the pharmacological treatment recommendations for prevention of osteoporosis. BD/Dexa Bone Density Study IMPRESSION: OSTEOPENIA. Recommend follow-up as clinically warranted. Reading Location: [place] [id number]
== END | disposition home or self-care (01) ==
LOC: OPBD 09:54
PROVIDERS: PCP Internal Medicine; Referring Provider Internal Medicine; Visit Provider Internal Medicine
DX: Z13.820 Encounter for screening for osteoporosis (principal); Z78.0 Asymptomatic menopausal state
CPT/HCPCS: 77080